=== PATIENT | female | born 1950 | race Caucasian/White ===

== ENCOUNTER 2021-03-07 15:07 | Emergency (ER) | payer MEDICARE ==
[2021-03-07] MEDS ORDERED: HYDROCODON-ACE1 EAC4 PO (19:01)
[2021-03-07] MEDS ORDERED: CEPHALEXIN500 MG PO (19:03)
== END 2021-03-07 19:56 | disposition home or self-care (01) ==
LOC: ER1 15:07
DX: S63.287A Dislocation of proximal interphalangeal joint of left little finger, initial encounter (principal); S61.217A Laceration without foreign body of left little finger without damage to nail, initial encounter; S60.511A Abrasion of right hand, initial encounter; I11.9 Hypertensive heart disease without heart failure; Z79.82 Long term (current) use of aspirin; W01.0XXA Fall on same level from slipping, tripping and stumbling without subsequent striking against object, initial encounter
CPT/HCPCS: 26770; 73130; 73140; 99283